=== PATIENT | female | born 1940 | race Caucasian/White ===

== ENCOUNTER 2018-02-04 17:33 | Inpatient (IN) | payer OTHER ==
[~2018-02-04] VITALS: Ht 167.6 cm; Wt 67.4 kg
--- NOTE | ~2018-02-04 | 2DMMODE ---
[facility] [address] [place] [address] 2 D/M-MODE ECHOCARDIOGRAM Name: VICTORINO MELÉNDEZ Room #: 203-P ADM IN M.R.#: [id number] Admission: 02/04/18 Attend Phys: Camilo Hicks, Discharge: Date of : 36 Date of Service: 02/05/18 1154 Report #: [id number] THIS REPORT FOR: //name// APPROVED REPORT Study performed: 02/05/2018 10:34:52 EXAM: Comprehensive 2D, Doppler, and color-flow Echocardiogram Patient Location: Bedside Room #: 203 Status: routine BSA: 1.78 HR: 93 bpm BP: 147/66 mmHg Rhythm: Atrial Fibrillation Other Information Study Quality: Good Indications Short of breath. Hx: CAD, stent, pacemaker, aortic and mitral valve replacement, heart failure. 2D Dimensions RVDd: 40.08 mm LVEF(%): 22.16 (>50%) IVSd: 12.14 (7-11mm) LVDd: 50.69 mm PWd: 11.54 (7-11mm) Ascending Ao: 32.75 (22-36mm) LVDs: 45.53 (25-40mm) Aortic Root: 33.41 mm Loaiza's LVEF: 22.16 % Volumes Left Atrial Volume (Systole) Single Plane 4CH: 92.15 mL Single Plane 2CH: 75.26 mL LA ESV Index: 49.00 mL/m2 Aortic Valve AoV Peak Nelson.: 2.85 m/s AO Peak Gr.: 32.55 mmHg AO Mean Gr.: 16.36 mmHg AO V2 Mean: 1.90 m/s AO V2 VTI: 47.10 cm Mitral Valve [facility] [employer] [address] [place] [address] 2 D/M-MODE ECHOCARDIOGRAM Name: VICTORINO MELÉNDEZ Room #: 203-P [facility] IN .R.#: [id number] Admission: 02/04/18 Attend Phys: Camilo Hicks, Discharge: Date of : 36 Date of Service: 02/05/18 1154 Report #: [id number] MV Decel. Time: 230.87 ms MV PHT: 69.21 ms MVA (PHT): 3.18 cm2 Pulmonary Valve PV Peak Nelson.: 0.67 m/s PV Peak Gr.: 1.83 mmHg Tricuspid Valve TR Peak Nelson.: 2.88 m/s RAP Estimate: 10.00 mmHg TR Peak Gr.: 33.17 mmHg PA Pressure: 43.00 mmHg Left Ventricle The left ventricle is normal size. Mild concentric left ventricular hypertrophy. Left ventricular systolic function is decreased. LVEF is 30%. This study is not technically sufficient to allow evaluation of the LV diastolic function due to atrial fibrillation. Right Ventricle The right ventricle is normal size. The right ventricular systolic function is low normal. Pacemaker lead is present in the right ventricle. Atria Left atrium is severely dilated. Right atrium is moderately dilated. Aortic Valve Mechanical aortic valve is present. Peak pressure gradient of 33mmHg and a mean gradient of 16mmHg. Trace to mild aortic regurgitation. Mitral Valve There is a mechanical mitral valve. Mean pressure gradient of 7mmHg. Mild mitral regurgitation. Tricuspid Valve The tricuspid valve is normal in structure. Moderate tricuspid regurgitation. Estimated PAP is 45mmHg. Pulmonic Valve The pulmonary valve is normal in structure. Mild to moderate pulmonic regurgitation. Great Vessels The aortic root is normal in size. The ascending aorta is normal in [facility] [address] [place] [address] 2 D/M-MODE ECHOCARDIOGRAM Name: VICTORINO MELÉNDEZ KAMILA Room #: 203-P [facility] IN ..#: [id number] Admission: 02/04/18 Attend Phys: Camilo Hicks, Discharge: Date of : 36 Date of Service: 02/05/18 1154 Report #: [id number] size. IVC is normal in size and collapses <50% with inspiration. Pericardium There is no pericardial effusion. <Conclusion> The left ventricle is normal size. Left ventricular systolic function is decreased. LVEF is 30%. The right ventricle is normal size. Pacemaker lead is present in the right ventricle. Left atrium is severely dilated. Right atrium is moderately dilated. Prosthetic aortic valve is present. Peak pressure gradient of 33mmHg and a mean gradient of 16mmHg. Trace to mild aortic regurgitation. There is a mechanical mitral valve. Mean pressure gradient of 7mmHg. Mild mitral regurgitation. The tricuspid valve is normal in structure. Moderate tricuspid regurgitation. Estimated PAP is 45mmHg. The pulmonary valve is normal in structure. Mild to moderate pulmonic regurgitation. There is no pericardial effusion. <ELECTRONICALLY SIGNED> By: Ryne Reynolds MD 02/05/18 1154 1154 1154 Ryne Reynolds MD /INF
--- NOTE | ~2018-02-04 | EKG ---
[address] [address] ELECTROCARDIOGRAM REPORT Name: RIKAVITCORINO TREVIÑO Room #: 203-P ADM IN M.R.#: [id number] Admission: 02/04/18 Attend Phys: Camilo Hicks MD Discharge: Date of : 36 Report #: [id number] THIS REPORT FOR: //name// [facility] ED Test Date: 2018-02-04 Test Time: 18:13:06 Pat Name: VICTORINO MELÉNDEZ Department: Room: 203 Gender: F [employer]: MZOOK : 1940 Requested By: Dandre Lange Order Number: [id number] MD: Vivek Solis Measurements Intervals [place] Rate: 97 P: FL: QRS: -32 QRSD: 108 T: 169 QT: 356 QTc: 452 Interpretive Statements Atrial fibrillation 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
[~2018-02-04 17:33] MED LIST: AMIODARONE PO; BACTROBAN NASAL1 GM; COREG PO; COUMADIN 2 MG TA2 M1; COUMADIN 2 MG TA2 M1 PO; FISHOIL; IRON; PRAVACHOL40 MG; TEKTURNA HCT 11 EACH; VERAPAMIL E.R240 M1
[2018-02-04 17:41] VITALS: BP 148/101
[2018-02-04 18:58] LABS: ABSOLUTE NEUTROPHILS 5.4 thou/uL (1.4-8.2); BASOPHILS 0.6 % (0.0-2.0); EOSINOPHILS 3.9 % (0.0-3.0); HEMATOCRIT 40.5 % (37.0-47.0); MCH 27.7 pg (26.0-34.0); MCHC 32.1 g/dL (28.0-37.0); MCV 86.2 fL (80.0-100.0); MONOCYTES 11.5 % (1.0-8.0); PLATELET COUNT 168 thou/uL (150-400); RDW 18.1 % (10.5-14.5); WBC 7.2 thou/uL (4.0-11.0)
[2018-02-04 19:07] LABS: ANION GAP 7 mmol/L (7-16); BUN 23 mg/dL (7-18); CHLORIDE 106 mmol/L (98-107); CO2 27 mmol/L (21-32); CREATININE 1.2 mg/dL (0.6-1.0); GLUCOSE 100 mg/dL (74-106); SODIUM 140 mmol/L (136-145)
[2018-02-04 19:11] LABS: PROTIME 29.7 Seconds (9.3-11.4)
[2018-02-04 19:15] LABS: ALBUMIN 3.5 g/dL (3.4-5.0); SGOT 42 U/L (15-37); SGPT 26 U/L (30-65); TOTAL BILIRUBIN 1.4 mg/dL (<0.1-1.0); TROPONIN-I < 0.04 ng/mL (<0.06)
[2018-02-04 21:16] VITALS: BP 159/76
[2018-02-04 21:40] VITALS: BP 144/77
[2018-02-04 23:57] VITALS: BP 146/84
[2018-02-05 03:23] VITALS: BP 147/66
[2018-02-05 04:45] LABS: INR 2.9; PROTIME 29.5 Seconds (9.3-11.4)
[2018-02-05] MEDS ORDERED: IRBESARTAN150 MG PO (08:10)
[2018-02-05] MEDS ORDERED: PLAVIX 75 MG TA75 M1 PO (08:11)
[2018-02-05] MEDS ORDERED: SYNTHROID50 MCG PO (08:11)
[2018-02-05 09:34] LABS: URINE BILIRUBIN NEGATIVE (Negative); URINE BLOOD NEGATIVE (Negative); URINE CLARITY CLEAR; URINE COLOR YELLOW; URINE GLUCOSE-RANDOM* NEGATIVE (Negative); URINE KETONES NEGATIVE (Negative); URINE LEUKOCYTES NEGATIVE (Negative); URINE NITRITE NEGATIVE (Negative); URINE PROTEIN (DIPSTICK) NEGATIVE (Negative); URINE SPECIFIC GRAVITY 1.015 (1.005-1.035); URINE UROBILINOGEN 0.2 E.U./dl (0.2-1.0)
[2018-02-05 13:21] VITALS: BP 152/74
[2018-02-05 15:40] VITALS: BP 157/90
[2018-02-05 19:25] VITALS: BP 97/56
[2018-02-06 00:03] VITALS: BP 141/97
[2018-02-06 04:37] VITALS: BP 127/89
[2018-02-06 04:48] LABS: CALCIUM 8.9 mg/dL (8.5-10.1); CREATININE 1.2 mg/dL (0.6-1.0); POTASSIUM 3.6 mmol/L (3.5-5.1)
[2018-02-06 04:54] LABS: INR 2.6; PROTIME 26.4 Seconds (9.3-11.4)
[2018-02-06 08:31] VITALS: BP 155/106
[2018-02-06] MEDS ORDERED: K-DUR10 MEQ PO (10:01)
[2018-02-06] MEDS ORDERED: LASIX 20 MG TAB20 MG PO (10:01)
[2018-02-06 10:41] VITALS: BP 155/106
== END 2018-02-06 11:05 | disposition home or self-care (01) | DRG 291 ==
LOC: ER 17:33 → 2N 20:32 → EROBS 20:32 → 2N 21:25
PROVIDERS: Hospitalist; Internal Medicine; Nurse Practitioner Acute Care; Physician Assistant
DX: I13.0 Hypertensive heart and chronic kidney disease with heart failure and stage 1 through stage 4 chronic kidney disease, or unspecified chronic kidney disease (principal); I50.23 Acute on chronic systolic (congestive) heart failure; E78.5 Hyperlipidemia, unspecified; N18.9 Chronic kidney disease, unspecified; I25.10 Atherosclerotic heart disease of native coronary artery without angina pectoris; I49.5 Sick sinus syndrome; I48.0 Paroxysmal atrial fibrillation; E87.70 Fluid overload, unspecified; E03.9 Hypothyroidism, unspecified; J01.90 Acute sinusitis, unspecified; R41.89 Other symptoms and signs involving cognitive functions and awareness; Z95.3 Presence of xenogenic heart valve; Z95.5 Presence of coronary angioplasty implant and graft; Z90.710 Acquired absence of both cervix and uterus; Z95.0 Presence of cardiac pacemaker; Z88.6 Allergy status to analgesic agent; Z88.1 Allergy status to other antibiotic agents; Z88.8 Allergy status to other drugs, medicaments and biological substances; Z82.49 Family history of ischemic heart disease and other diseases of the circulatory system; Z87.891 Personal history of nicotine dependence; Z90.722 Acquired absence of ovaries, bilateral; Z90.5 Acquired absence of kidney; Z95.820 Peripheral vascular angioplasty status with implants and grafts; Z79.899 Other long term (current) drug therapy
CPT/HCPCS: 10081

== ENCOUNTER → 2020-03-23 | Outpatient (CLI) | payer OTHER ==
[~2020-03-23] MED LIST changes: +IRBESARTAN150 MG PO; +K-DUR10 MEQ PO; +LASIX 20 MG TAB20 MG PO; +PLAVIX 75 MG TA75 M1 PO; +SYNTHROID50 MCG PO
== END ==
LOC: SJCVC 15:02
PROVIDERS: ATTEND Internal Medicine
DX: R94.31 Abnormal electrocardiogram [ECG] [EKG] (principal); I25.10 Atherosclerotic heart disease of native coronary artery without angina pectoris; I11.0 Hypertensive heart disease with heart failure; I50.22 Chronic systolic (congestive) heart failure; I25.5 Ischemic cardiomyopathy; E78.5 Hyperlipidemia, unspecified; I48.21 Permanent atrial fibrillation; I65.23 Occlusion and stenosis of bilateral carotid arteries; I25.2 Old myocardial infarction; Z95.2 Presence of prosthetic heart valve; Z95.4 Presence of other heart-valve replacement; Z95.0 Presence of cardiac pacemaker; Z79.01 Long term (current) use of anticoagulants; Z79.899 Other long term (current) drug therapy; Z87.891 Personal history of nicotine dependence; Z82.49 Family history of ischemic heart disease and other diseases of the circulatory system

== ENCOUNTER → 2020-08-22 | Outpatient (CLI) | payer OTHER | LOC: SJCVC 14:13 | PROVIDERS: ATTEND Internal Medicine | DX: Z51.81 Encounter for therapeutic drug level monitoring (principal); I48.21 Permanent atrial fibrillation; I42.9 Cardiomyopathy, unspecified; I10 Essential (primary) hypertension; E03.9 Hypothyroidism, unspecified; I25.10 Atherosclerotic heart disease of native coronary artery without angina pectoris; Z68.26 Body mass index [BMI] 26.0-26.9, adult; Z95.2 Presence of prosthetic heart valve; Z79.01 Long term (current) use of anticoagulants; Z79.899 Other long term (current) drug therapy ==

== ENCOUNTER → 2020-09-24 | Outpatient (CLI) | payer OTHER | LOC: SJCVCIMAG 11:38 | PROVIDERS: ATTEND Internal Medicine | DX: I65.23 Occlusion and stenosis of bilateral carotid arteries (principal); I08.3 Combined rheumatic disorders of mitral, aortic and tricuspid valves; R94.31 Abnormal electrocardiogram [ECG] [EKG]; I25.10 Atherosclerotic heart disease of native coronary artery without angina pectoris; I11.0 Hypertensive heart disease with heart failure; I50.22 Chronic systolic (congestive) heart failure; I25.5 Ischemic cardiomyopathy; E78.5 Hyperlipidemia, unspecified; I48.21 Permanent atrial fibrillation; Z95.4 Presence of other heart-valve replacement; Z95.2 Presence of prosthetic heart valve; Z95.0 Presence of cardiac pacemaker; Z79.01 Long term (current) use of anticoagulants; Z79.899 Other long term (current) drug therapy; Z87.891 Personal history of nicotine dependence ==

== ENCOUNTER → 2021-03-25 | Outpatient (CLI) | payer OTHER | LOC: SJCVC 14:27 | PROVIDERS: ATTEND Internal Medicine | DX: R94.31 Abnormal electrocardiogram [ECG] [EKG] (principal); I25.10 Atherosclerotic heart disease of native coronary artery without angina pectoris; I65.23 Occlusion and stenosis of bilateral carotid arteries; I71.4 Abdominal aortic aneurysm, without rupture; I49.5 Sick sinus syndrome; I11.0 Hypertensive heart disease with heart failure; I50.22 Chronic systolic (congestive) heart failure; E78.5 Hyperlipidemia, unspecified; I48.21 Permanent atrial fibrillation; Z95.2 Presence of prosthetic heart valve; Z95.4 Presence of other heart-valve replacement; Z95.0 Presence of cardiac pacemaker; I25.2 Old myocardial infarction; Z88.8 Allergy status to other drugs, medicaments and biological substances; Z79.01 Long term (current) use of anticoagulants; Z79.899 Other long term (current) drug therapy; Z87.891 Personal history of nicotine dependence; Z82.49 Family history of ischemic heart disease and other diseases of the circulatory system ==

== ENCOUNTER → 2021-09-26 | Outpatient (CLI) | payer OTHER | LOC: SJCVCIMAG 12:07 | PROVIDERS: ATTEND Internal Medicine | DX: R94.31 Abnormal electrocardiogram [ECG] [EKG] (principal); I08.8 Other rheumatic multiple valve diseases; I11.0 Hypertensive heart disease with heart failure; I50.22 Chronic systolic (congestive) heart failure; I25.10 Atherosclerotic heart disease of native coronary artery without angina pectoris; I65.23 Occlusion and stenosis of bilateral carotid arteries; I48.21 Permanent atrial fibrillation; E78.5 Hyperlipidemia, unspecified; I25.5 Ischemic cardiomyopathy; Z95.0 Presence of cardiac pacemaker; Z95.2 Presence of prosthetic heart valve; Z95.4 Presence of other heart-valve replacement; Z87.891 Personal history of nicotine dependence; Z79.82 Long term (current) use of aspirin; Z79.01 Long term (current) use of anticoagulants; Z79.899 Other long term (current) drug therapy; Z88.8 Allergy status to other drugs, medicaments and biological substances ==